=== PATIENT | female | born 1995 | race Caucasian/White ===

== ENCOUNTER 2019-08-30 02:42 | Inpatient (IN) | payer MEDICAID, SELFPAY ==
[2019-08-30 02:41] VITALS: BMI 52.1
[2019-08-30 02:45] LABS: Bacteria 0 SEEN /hpf (None Seen); Mucous, Urine 0 SEEN /hpf (<or=2+)
[2019-08-30 02:50] LABS: Color, Urine Yellow (Yellow); Glucose, Dipstick 250 mg/dl (Normal); Ketone-Dipstick 5 mg/dl (Negative); Leukocyte Esterase-Dipstick 25 /ul (Negative); Nitrite-Dipstick Negative (Negative); Occult Blood-Urine 25 /ul (Negative); Protein-Dipstick 30 mg/dl (Negative); Specific Gravity, Urine 1.025 (1.002-1.030); Urine Bilirubin Dipstick Negative (Negative); Urine Clarity Clear (Clear); Urine Urobilinogen Normal (Normal)
--- NOTE | 2019-08-30 02:51 | HP.PCM_ITS ---
History and Physical Date of Admission: 08/30/19 23 yo female presents by squad from home in [place] with CC of gush of clear fluid and passing mucous plug at 12:30 am. C/O painful contractions starting on way to hospital States closed at her last PNV EDC 10/05/19 Poor historian. care: no records available. Reports seeing MFM in [place]. Pregestational diabetes. 1 hr GTT 221 at 8 wk EGA this . States HTN and no meds for this. Taking baby ASA daily. States anemic. reports this baby is a girl MSAFP sequential screen NEG Past OB history: 1.) 37 wk delivery , with epidural Male (Kyle) 4 yrs old SROM with that . 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 States no fluid. 3.) current pregnancies Past LAYOUT FORMER history: denies abnormal paps, hx of chlamydia (according to outside records) Past medical history: No prior hospitalizations except for childbirth Anxiety Depression Post Traumatic Stress Disorder (after termination of twin IUP in 2018) Obesity Seasonal allergies Past Surgical History: Surgical repair L eye at 3 yo due to dog bite. Family history: Diabetes, Schizophrenia Social history: -- spouse present Smoker. Denies drugs, denies EtOH Medications: Baby ASA daily for hx of HTN and gestational diabetes, PNV Folic acid ALLERGIES: NKDA PHYSICAL EXAM General - Alert, oriented. Intermittently painful , breathing through [facility] Psychiatric: mood and affect appropriate HEENT - normocephalic atraumatic, EOMI. Neck supple. Abdomen - obese, gravid. Lungs - Regular respiratory rate, breathing through Bedside sono -- VTX presentation Ext - no clubbing, cyanosis, edema Pelvic: External genitalia WNL. Clear fluid noted Cx; /-2 EFM 120s to 130s accels difficult to trace with BMI intermittent tracing at times. [facility] q 2-3 min ROM test sent -- POSITIVE GBS collected. A/P: 34 6/7 wk EGA SROM. ROM test sent. Labor with cervix at 4cm. Planning epidural. Unknown GBS status. Will send GBS rapid screen. -- pediatric hospitalist consult . To be present for delivery. -- GBS prophylaxis to be started -- Betamethasone given 12 mg IM times one for delivery -- admit for labor and delivery. Plans epidural. Anesthesia consult also after CBC and IV fluid bolus. panel unless able to obtain records. -- Urine tox screen - -NEG -- consider IUPC, scalp lead prn. -- Plts ok for epidural WBCs 11,200. Plts 252,000 Hg 13.1 g/dl. Outside records: limited and no panel
[2019-08-30 02:53] LABS: ROM Internal Control Test YES-OK TO RESULT pt. (Internal QC)
[2019-08-30 02:55] LABS: Red Blood Cells-Urine 0-5 SEEN /hpf (0-5); White Blood Cells 0-5 SEEN /hpf (0-5)
[2019-08-30 02:55] LABS: ROM Patient Test POSITIVE (Negative); Record Kit Lot#, ROM+ J8255
[2019-08-30 02:56] LABS: Amorphous Sediment 1+; Squamous Epithelial Cells - UA 25-50 SEEN /hpf (5-10); Vista UDS pH Range 5
[2019-08-30] MEDS: Betamethasone/Betamethasone 30 MG/5 ML Vial 12 MG IM (02:56)
[2019-08-30] MEDS: Lactated Ringers 500 ML 999 ML IV ×3 (02:59→08:21)
[2019-08-30 03:15] LABS: Absolute Lymphocyte Count 1.83 X10^3/uL (0.83-4.51); Absolute Neutrophil Count 8.3 X10^3/uL (2.0-7.7); Basophil# 0.06 X10^3/uL; Basophil% 0.5 % (0-1); Eosinophil# 0.09 X10^3/uL; Eosinophils% 0.8 % (0-5); Hematocrit 39.7 % (37-47); Hemoglobin 13.1 g/dL (12.0-15.0); Lymphocyte # 1.83 X10^3/ul (4.0); Lymphocyte % 16.3 % (19-41); Mean Corpuscular Hgb 29.3 pg (27.0-32.0); Mean Corpuscular Volume 88.8 fL (81-99); Mean Platelet Vol. 9.9 fl (6.2-12.0); Monocyte% 7.1 % (0-10); NRBC Flagged by Analyzer 0 % (0-5); Neutrophil # 8.32 X10^3/uL (2.7-7.7); Neutrophil % 74.3 % (47-70); Platelet Count 252 K/mm3 (150-450); RBC Distribution Width CV 13.3 % (11.6-14.6); RBC Distribution Width SD 42.9 fl (35.1-43.9); Red Blood Count 4.47 M/mm3 (4.2-5.4); White Blood Count 11.2 K/mm3 (4.4-11.0)
[2019-08-30 03:17] LABS: Amphetamine Urine VISTA NEGATIVE (<1000 ng/mL); Barbiturate Urine VISTA NEGATIVE (< 200 ng/mL); Benzodiazepine Urine VISTA NEGATIVE (< 200 ng/mL); Cocaine Urine VISTA NEGATIVE (< 300 ng/mL); Ecstacy Urine VISTA NEGATIVE (< 500 ng/mL); Methadone Urine VISTA NEGATIVE (< 300 ng/mL); PCP Urine VISTA NEGATIVE (< 25 ng/mL); THC Urine VISTA NEGATIVE (< 50 ng/mL)
[2019-08-30 03:51] LABS: Bedside Glucose 114 mg/dL (70-110)
[2019-08-30 04:00] LABS: Rubella IgG 146.5 IU/mL
[2019-08-30 04:15] LABS: Group B Strep DNA By PCR POSITIVE (Negative); Probe Check PASS
[2019-08-30] MEDS: Lactated Ringers 1,000 ML 50 ML IV (04:15)
[2019-08-30] MEDS: fentaNYL-bupivacaine (epidural) 100 ML BAG EPIDURAL (04:16)
--- NOTE | 2019-08-30 04:19 | PCM.PN.BLA ---
Progress Note LABOR PROGRESS NOTE Sitting up for epidural Outside labs just received: 04/01/19 collection date A positive, Rubella immune GC and chlamydia NEG VDRL, HepB and HIV negative Pap normal Initial glucola 221. @ 8 wks.
[2019-08-30 04:46] LABS: Bedside Glucose 118 mg/dL (70-110)
[2019-08-30 06:06] LABS: Bedside Glucose 111 mg/dL (70-110)
--- NOTE | 2019-08-30 07:07 | PCM.PN.BLA ---
Progress Note LABOR PROGRESS NOTE Comfortable w/ epidural. AVSS EFM to IFM placed due to intermittent EFM and difficulty tracing FHR with BMI: 130-140s avg variability. Accels. UCs poor pickup and ? adequacy CX: 3-4 per last RN check. This is no change from time of admission approx 2 am. A/P: 34 6/7 wk SROM. labor. Admitted GBS positive and already on ampicillin for GBS prophylaxis. A positive. RI IUPC placement per RNs. Begin pitocin per protocol. Anticipate .
[2019-08-30] MEDS: Oxytocin 30 units/NS 500 ml 30 UNITS/500 ML IV.SOLN IV (07:28)
[2019-08-30 07:31] LABS: Bedside Glucose 118 mg/dL (70-110)
[2019-08-30] MEDS: Amnioinfusion- 0.9% NS 1,000 ML IV.SOLN. 300 ML INTRA-UTER (08:21)
[2019-08-30] MEDS: Oxytocin 30 units/NS 500 ml 30 UNITS/500 ML IV.SOLN 334 UNITS IV (08:40)
--- NOTE | 2019-08-30 08:46 | DCINST_ITS ---
Discharge Diet: No Restrictions May resume sexual activity in: 4-6 weeks Additional Activity Instructions:: Nothing in the vagina for 4-6 weeks. You may return to work/school in 6 weeks. Additional Instructions: If you experience any of the following, contact your healthcare provider. * Bleeding that soaks a pad every hour for 2 hours * Fever 100.4 or higher * Unrelieved abdominal pain * Problems urinating (including inability to urinate or burning while u rinating). * Visual changes * Severe headache * Flu-like symptoms * Pain or redness in one of both of your breasts * Pain, warmth, tenderness or swelling in your legs, especially the calf area * Frequent nausea and vomiting * Symptoms of depression or anxiety If you experience any of the following, call 911 or go to the nearest Emergency Room. * Chest pain * Problems breathing * Seizure activity * Partial or complete paralysis of a body part, slurred speech, weakness or drooping of the face, or a sudden inability to walk or hold your balance Allergies/Adverse Reactions: Allergies No Known Allergies Allergy (Verified 08/30/19 02:41) Medications to take at Discharge Aspirin 81 mg PO DAILY 08/30/19 Folic Acid 1 tab PO DAILY 08/30/19 Please Follow Up With: Maternal Medicine When: Call to make an appointment with your doctor in 6 weeks. Test Results: Test results from this visit will be discussed in further detail at your follow- up appointment, if applicable. Proposed Discharge Date: 09/01/19
--- NOTE | 2019-08-30 08:46 | PCM.DCVAG ---
Discharge Diet: No Restrictions May resume sexual activity in: 4-6 weeks Additional Activity Instructions:: Nothing in the vagina for 4-6 weeks. You may return to work/school in 6 weeks. Additional Instructions: If you experience any of the following, contact your healthcare provider. Bleeding that soaks a pad every hour for 2 hours Fever 100.4 or higher Unrelieved abdominal pain Problems urinating (including inability to urinate or burning while urinating). Visual changes Severe headache Flu-like symptoms Pain or redness in one of both of your breasts Pain, warmth, tenderness or swelling in your legs, especially the calf area Frequent nausea and vomiting Symptoms of depression or anxiety If you experience any of the following, call 911 or go to the nearest Emergency Room. Chest pain Problems breathing Seizure activity Partial or complete paralysis of a body part, slurred speech, weakness or drooping of the face, or a sudden inability to walk or hold your balance Allergies/Adverse Reactions: Allergies No Known Allergies Allergy (Verified 08/30/19 02:41) Medications to take at Discharge Aspirin 81 mg PO DAILY 08/30/19 Folic Acid 1 tab PO DAILY 08/30/19 Please Follow Up With: Maternal Medicine When: Call to make an appointment with your doctor in 6 weeks. Test Results: Test results from this visit will be discussed in further detail at your follow-up appointment, if applicable. Proposed Discharge Date: 09/01/19
--- NOTE | 2019-08-30 08:47 | PCM.OPRPT ---
Vaginal Delivery Maternal Presentation: Active Labor, Spontaneous Rupture of Membranes Amniotic Membrane Rupture Type: Spontaneous at home Rupture of Membrane time: 1230 am Amniotic Fluid Description: Clear Final CELESTINO: 10/05/19 Gestational age: 34 Weeks and 6 Days [place] doctor who attended delivery (if requested by OB): Martita Patel Date of Procedure: 08/30/19 Pre-Operative Diagnosis: 34 6/7 wk labor, SROM Post-Operative Diagnosis: Same Surgery/ Procedure Performed: Spontaneous Vaginal Delivery Anesthesiologist: [place] - [facility] Type of Anesthesia: Epidural Description of Procedure: of a roque viable female over intact perineum FYLNN. No nuchal cord. Shoulders delivered easily. cord around legs reduced. Cord clamped times two and cut. Infant to Dr Patel present for delivery. GBS positive ABX in place. Also betamethasone single dose given with early labor. Deep variables with last few minutes and pushing. Infant vigorous and crying PP exam; no lacerations Placenta delivered b spontaneous expulsion, expression. 3V cord, normal appearing, small, intact with trailing membranes EBL 200 cc Pt and infant tolerated delivery well. To recovery, stable condition Ray Rehan counts correct times two Presentation: Vertex Placental Delivery Description: Spontaneous, Expressed Placenta Disposition: [facility] Cord Vessel Description: 3 Vessels Cord Entanglement: None - cord around foot/leg, reduced at delivery Estimated Blood Loss: 200 Infant A gender: Female (1 minute): 8 (5 minute): 9 Episiotomy Description: None Laceration: None Medications given after delivery: IV Pitocin Complications: None
[2019-08-30 09:31] LABS: Bedside Glucose 114 mg/dL (70-110)
[2019-08-30 10:30] LABS: HIV - WCH Non-Reactive (Nonreactive); Hepatitis B Surface Antigen Non-Reactive (Nonreactive); Hepatitis C Antibody Non-Reactive (Nonreactive)
--- NOTE | 2019-08-30 10:50 | NURSING ---
Began mother pumping with electric double pump at 09:50am. Also assisted and instructed mother on hand expression post pumping. Mother going to pump every three hours around the clock. Milk labeled and brought to [facility] for baby and given to primary nurse Jocelyn.
[2019-08-30 15:27] VITALS: BP 125/65; PULSE 80; RESP 18; TEMP 36.1
[2019-08-30] MEDS: Ibuprofen 600 MG Tablet PO (17:30)
--- NOTE | 2019-08-30 17:44 | NURSING ---
pt spending time lots of time in SCN skin to skin with ; pt medicated for pain in SCN
[2019-08-30 20:24] VITALS: BP 108/48; PULSE 76; RESP 16; TEMP 36.2
[2019-08-30 23:59] VITALS: BP 126/69; PULSE 84; RESP 16; TEMP 36.6
[2019-08-31] MEDS: Acetaminophen 500 MG Tablet 1000 MG PO ×2 (04:27→14:05)
[2019-08-31 04:30] VITALS: BP 133/79; PULSE 88; RESP 16; TEMP 36.5
[2019-08-31 05:45] LABS: Bedside Glucose 88 mg/dL (70-110)
--- NOTE | 2019-08-31 05:47 | NURSING ---
bedside fasting glucose, 88
[2019-08-31 07:52] VITALS: BP 123/51; PULSE 72; RESP 15; TEMP 36.1
--- NOTE | 2019-08-31 08:09 | PCM.PN.OB ---
Subjective: PPD#1 delivery 34 6/7 wk EGA Baby girl weight 6# 10 oz. (gestational diabetes) She is in SCN with some breathing issues. Ary is pumping and states sore nipples. (encouraged to ask for Lansinoh cream) She is having some back discomfort but nothing new for her. Feeling well otherwise. - Physical Exam General: Alert, Oriented x3, Cooperative, No apparent distress HEENT: Atraumatic, EOMI Neck: Supple Psych/Mental Status: Normal Affect Vital Signs Temp Pulse Resp BP 97.0 F L 72 15 123/51 H 08/31/19 07:52 08/31/19 07:52 08/31/19 07:52 08/31/19 07:52 Oxygen Delivery Method Room Air Weight: 125.191 kg Body Mass Index (BMI) 52.1 Intake and Output for Last 24 Hours 08/29/19 08/30/19 08/31/19 23:59 23:59 23:59 Intake Total 2354.15 / 2354.15 Output Total 1050 / 1050 Balance 1304.15 / 1304.15 Laboratory Tests Past 24 Hrs 08/30/19 08/30/19 02:20 02:55 Chlam trachomat DNA PCR Cancelled Hep Bs Antigen Non-Reactive Hepatitis C Antibody Non-Reactive HIV 1&2 Antibody Non-Reactive N.gonorrhoeae DNA (PCR) Cancelled POC Glucose 08/31/19 08/30/19 05:34 09:03 POC Glucose 88 114 H Medical Necessity - Tobacco Use Smoking Status: Former smoker Assessment/Plan 34 6/7 wk vaginal delivery. SROM and labor, delivery Stable Continue routine pp care.
[2019-08-31 14:00] VITALS: BP 131/55; PULSE 80; RESP 15; TEMP 36.4
[2019-08-31 19:30] VITALS: BP 121/69; PULSE 87; RESP 18; TEMP 36.2; O2SAT 97
--- NOTE | 2019-08-31 19:45 | NURSING ---
Encouraged patient to pump every 3 hours.
[2019-09-01 01:48] VITALS: BP 108/62; PULSE 73; RESP 16; TEMP 36.3; O2SAT 100
[2019-09-01] MEDS: Ibuprofen 600 MG Tablet PO ×2 (06:03→17:29)
--- NOTE | 2019-09-01 06:46 | PCM.PN.OB ---
Subjective: Feeling well, tolerating diet, passing flatus, mild back discomfort, well controlled with pain medications; infant in SCN and doing well; pumping for infant, nipples improving with Lansinoh Objective: AVSS Nipples atraumatic Fundus firm, midline, u/1, lochia small - Physical Exam General: Alert, Oriented x3, Cooperative, No apparent distress HEENT: PERRLA, EOMI Oral: Moist Mucosa Neck: Supple Lungs: Clear to auscultation, Normal air movement Cardiovascular: Regular rate, Regular Rhythm Abdomen: Bowel Sounds Present, Soft, Non Tender, Non-Distended, Passing Flatus, Obese Extremities: No cyanosis Musculoskeletal: No Tenderness to Palpation of Joints or Extremities Neurological: Cranial nerves II-XII grossly intact, Deep Tendon Reflexes 2+/4 and Symmetrical Psych/Mental Status: Normal Affect, Appropriate, Alert and oriented to time, place, person, mood and affect Vital Signs Temp Pulse Resp BP Pulse Ox 97.4 F L 73 16 108/62 100 09/01/19 01:48 09/01/19 01:48 09/01/19 01:48 09/01/19 01:48 09/01/19 01:48 Oxygen Delivery Method Room Air Weight: 276 lb Body Mass Index (BMI) 52.1 Intake and Output for Last 24 Hours 08/30/19 08/31/19 09/01/19 23:59 23:59 23:59 Intake Total 2354.15 / 2354.15 Output Total 1050 / 1050 Balance 1304.15 / 1304.15 Medical Necessity - Tobacco Use Smoking Status: Former smoker Assessment/Plan Impression: 34 6/7 wk vaginal delivery. SROM and labor, delivery PP Day #2, normal involution, normal course Plan: Discharge teaching started Continue routine care DC contingent [facility]
[2019-09-01 08:00] VITALS: BP 122/76; PULSE 60; RESP 14; TEMP 36.4
--- NOTE | 2019-09-01 08:11 | PCM.PN.OB ---
Subjective: PPD#2 No care here. 34 6/7 wk diabetic female baby remains in [facility]. Plans to stay until baby is sent home. (advised she will go on hotel) no concerns voiced otherwise. Has decided to bottle feed as baby is not feeding well on breast. - Physical Exam General: Alert, Oriented x3, Cooperative, No apparent distress HEENT: Atraumatic, EOMI Neck: Supple Abdomen: Soft - Fundus difficult to palpate 2/2 BMI. NT approx umbilicus Psych/Mental Status: Normal Affect Vital Signs Temp Pulse Resp BP Pulse Ox 97.4 F L 73 16 108/62 100 09/01/19 01:48 09/01/19 01:48 09/01/19 01:48 09/01/19 01:48 09/01/19 01:48 Oxygen Delivery Method Room Air Weight: 125.191 kg Body Mass Index (BMI) 52.1 Intake and Output for Last 24 Hours 08/30/19 08/31/19 09/01/19 23:59 23:59 23:59 Intake Total 2354.15 / 2354.15 Output Total 1050 / 1050 Balance 1304.15 / 1304.15 Medical Necessity - Tobacco Use Smoking Status: Former smoker Assessment/Plan 34 6/7 wk vaginal delivery. SROM and labor, delivery Diabetic female Stable Dischg home today Advised may stay on hotel status until baby is released, but not requiring continued hospital stay herself. Follow up with MFM or usual OB outpt within 6 wk for pp check. Will need 2 hr 75 gm GTT Highly likely she is pregestational diabetic. Blood sugars ok now. Advised needs to get her diet and exercise, diabetes under control to prevent later health problems Advised she will need to get and take her own tylenol or other meds prn as no longer admitted, stable for dischg home. Eligible for hotel status as baby remains in [facility] due to issues of prematurity.
--- NOTE | 2019-09-01 09:14 | NURSING ---
reports falls during due to infants position pressing on nerve
[2019-09-01 14:00] VITALS: BP 137/70; PULSE 95; RESP 18; TEMP 36.3
[2019-09-01] MEDS: Acetaminophen 500 MG Tablet 1000 MG PO (16:22)
[2019-09-01 18:40] VITALS: BP 138/64; PULSE 80; RESP 16
[2019-09-01] MEDS: Senna/Docusate Sodium 1 Tablet PO (18:52)
[2019-09-02 01:54] LABS: Rapid Plasmin Reagin (RPR) NONREACTIVE (NONREACTIVE)
== END 2019-09-01 19:00 | disposition home or self-care (01) | DRG 560 ==
LOC: WPOUT 02:48 → WP 09:01
PROVIDERS: Admitting Provider Obstetrics & Gynecology; Visit Provider Obstetrics & Gynecology
DX: O60.14X0 Preterm labor third trimester with preterm delivery third trimester, not applicable or unspecified (principal); O98.82 Other maternal infectious and parasitic diseases complicating childbirth; B95.1 Streptococcus, group B, as the cause of diseases classified elsewhere; O99.214 Obesity complicating childbirth; O24.429 Gestational diabetes mellitus in childbirth, unspecified control; Z3A.34 34 weeks gestation of pregnancy; Z37.0 Single live birth
CPT/HCPCS: 59025; 59050; 80307; 81001; 82962; 84112; 85025; 86592; 86703; 86762; 86803; 86850; 86900; 86901; 87340; 87653; 99218; J7030; J7120; G0378; J0702